=== PATIENT | male | born 1980 | race Caucasian/White ===

== ENCOUNTER 2024-02-26 13:23 | Emergency (ER) | payer MEDICARE, MEDICAID ==
[~2024-02-26] VITALS: Ht 172.7 cm; Wt 82.1 kg
[2024-02-26 13:23] VITALS: TEMP 98.3
[~2024-02-26 13:23] MED LIST: DIVA-91
[2024-02-26 15:37] VITALS: PULSE 75; RESP 16; O2SAT 97
[2024-02-26] MEDS: cefTRIAXone SOD 1,000 MG VL IM ONE (15:48)
[2024-02-26] MEDS: TETANUS-DIPTH-ACEL PERTUSSIS 0.5ML SYR Tdap IM ONE (15:49)
[2024-02-26] MEDS ORDERED: CEPH500C PO (15:53)
[2024-02-26] MEDS ORDERED: NAPR-746 PO (15:53)
[2024-02-26 16:22] VITALS: BP 147/78; PULSE 72; RESP 18; O2SAT 98
== END 2024-02-26 16:23 | disposition home or self-care (01) ==
LOC: ER 13:23
DX: S62.630A Displaced fracture of distal phalanx of right index finger, initial encounter for closed fracture (principal); Z79.899 Other long term (current) drug therapy; W20.8XXA Other cause of strike by thrown, projected or falling object, initial encounter; Y93.89 Activity, other specified; Y92.89 Other specified places as the place of occurrence of the external cause; Y99.8 Other external cause status
CPT/HCPCS: 73130; 90471; 90715; 96372; 99284; J0696